=== PATIENT | male | born 1930 | race Caucasian/White ===

== ENCOUNTER 2016-07-29 16:49 | Inpatient (IN) ==
--- NOTE | 2016-07-29 17:08 | Emergency Department Note ---
Disposition Clinical Impression: Comminuted fracture of left patella Qualifiers: Encounter type: initial encounter Fracture type: closed Qualified Code(s): S82.042A - Displaced comminuted fracture of left patella, initial encounter for closed fracture Disposition: Admitted As Inpatient Condition: Fair Referrals: Quinn Nova DO [Primary Care Provider] - Forms: ED Satisfaction Letter Time of Disposition: 17:52 Lower Extremity Injury HPI - General Chief Complaint: ED Extremity Injury, Lower Stated Complaint: knee injury Time Seen by Provider: 07/29/16 17:03 Source: patient Limitations: no limitations Nursing Notes Reviewed: Yes Vital Signs Reviewed: Yes - History of Present Illness HPI Narrative: Nontoxic-appearing 86-year-old male presents to emergency department for evaluation of a left knee injury sustained this morning. The patient states that he went to step over a small fence, when he tripped and fell, landing on his left knee. He now complains of pain and swelling diffusely around the left knee. He denies any other injuries incurred from this incident. He has taken a previously prescribed tramadol at home which he states significantly helped the pain. Pt Subjective Complaint: knee injury Injury location: Left knee Onset (ago): hour(s) (This morning) Mechanism of Injury: fall Context: fall Place: street/outdoors Pain Severity: mild Pain Scale: 3 Improves with: nothing Worsens with: weight bearing, movement, palpation Associated symptoms: Reports: able to partially bear weight Treatments prior to arrival: other (Tramadol) - Related Data Allergies Allergy/AdvReac Type Severity Reaction Status Date / Time No Known Allergies Allergy Verified 07/29/16 16:54 All systems ED: reviewed and negative except as stated. Constitutional: Denies: fever, chills, weakness, weight change Eyes: Denies: eye pain, eye discharge, vision change ENT ED: Denies: ear pain, throat pain, dental pain, hearing loss, epistaxis, congestion, dysphagia Cardiovascular: Denies: chest pain, palpitations, dyspnea on exertion, edema, syncope Respiratory: Denies: cough, dyspnea, wheezes, hemoptysis, stridor Gastrointestinal: Denies: abdominal pain, nausea, vomiting, diarrhea, constipation, hematemesis, melena, hematochezia Genitourinary: Denies: urgency, dysuria, frequency, hematuria Musculoskeletal: Reports: as per HPI, joint swelling (Left knee swelling), arthralgia (Left knee pain). Denies: back pain, neck pain, myalgia Integumentary: Reports: as per HPI, abrasion (Left knee abrasion). Denies: rash , lesions Neurological: Denies: headache, weakness, numbness, paresthesias, confusion, abnormal gait, vertigo Psychiatric: Denies: anxiety, depression, suicidal thoughts, homicidal thoughts , auditory hallucinations, visual hallucinations Endocrine: Denies: fatigue Hematological/Lymphatic: Denies: easy bleeding, easy bruising Allergic/Immunologic: Denies: facial swelling, urticaria Past Medical History - Past Medical History Attestation: Yes The following information was validated with the patient. Source: patient, nursing notes reviewed Medical history: Reports: cancer, hypertension - Social History Smoking Status: Former smoker Alcohol use: Reports: none Drug use: Reports: none Physical Exam - General Limitations: no limitations General appearance: alert, in no apparent distress - Head Head exam: atraumatic, normocephalic, normal inspection - Eye Eye exam: Present: normal appearance, PERRL, EOMI. Absent: nystagmus - ENT ENT exam: mucous membranes moist - Neck Neck exam: Present: normal inspection, full ROM, trachea midline - Chest Chest inspection: Present: normal inspection, symmetric chest wall rise - Respiratory Respiratory exam: Present: normal lung sounds bilaterally. Absent: respiratory distress, wheezes, stridor, accessory muscle use, prolonged expiratory phase - Cardiovascular Cardiovascular exam: Present: regular rate, normal rhythm, normal heart sounds - Abdominal Exam Abdominal exam: Present: soft, Non-Tender, normal bowel sounds. Absent: tenderness, distention, guarding, rebound, rigidity - Expanded Lower Extremity Exam Upper leg exam: Present: normal inspection, full ROM Knee exam: Present: tenderness (Left knee tender to palpation diffusely), swelling (A few swelling noted, left knee), abrasion (We will superficial abrasions noted left knee), ecchymosis (Out ecchymosis noted, left knee), knee extension intact. Absent: full ROM (Range of motion limited by pain, left knee) , laceration, deformity, crepitus, dislocation, erythema, effusion, anterior drawer sign, posterior draw sign, pain with valgus, laxity with valgus, laxity with varus Lower leg exam: Present: normal inspection, full ROM Ankle exam: Present: normal inspection, full ROM Foot/toe exam: Present: normal inspection, full ROM Neurovascular/Tendon exam: Present: normal capillary refill, normal 2-point discrimination. Absent: pulse deficit, motor deficit, sensory deficit, tendon deficit, extremity cold to touch Gait: not tested/not observed - Back Exam Back exam: Present: normal inspection, full ROM. Absent: tenderness - Neurological Exam Neurological exam: Present: alert, oriented X3 - Psychiatric Psychiatric exam: Present: normal affect, normal mood - Skin Skin exam: Present: warm, dry, intact, normal color Course Course Narrative: 1738: I spoke with Dr. Luna, orthopedist home extension agent. I discussed the patient' s case and x-ray results with Dr. Luna. He recommends admission to the hospitalist service as the patient is an unlikely candidate for outpatient care with the use of crutches for nonweightbearing status. He states that he will see the patient in house tomorrow morning. 1748: I spoke with Dr. Darnell, hospitalist, who has accepted the patient for admission to the hospitalist service with orthopedic consult. I have discussed this plan with Dr. Quigley. Dr. Quigley has had a isap-be-elto evaluation with patient and agrees with the above plan. Vital Signs Temperature 0 F L 07/29/16 16:54 Pulse Rate 77 07/29/16 16:54 Respiratory Rate 18 07/29/16 16:54 Blood Pressure 135/82 07/29/16 16:54 O2 Sat by Pulse Oximetry 95 07/29/16 16:54 Temperature 0 F L 07/29/16 16:54 Pulse Rate 77 07/29/16 16:54 Respiratory Rate 18 07/29/16 16:54 Blood Pressure 135/82 07/29/16 16:54 O2 Sat by Pulse Oximetry 95 07/29/16 16:54 Oxygen Delivery Oxygen Delivery Room Air Extremity Injury, Lower - Medical Records Medical records reviewed: Yes I reviewed the patient's medical records. - Radiology Data Radiology results reviewed: Yes I reviewed the patient's radiology results. Knee X-Ray 07/29/16 17:10 IMPRESSION: Comminuted left patellar fracture. D/ / Gurjit Otero MD / Gurjit Otero MD Interpreting Provider: Gurjit Otero MD Attestation Statement - Attestation Attestation: For this encounter, I have reviewed the NON DESTRUCTIVE TESTING SCIENTIST or PA documentation, treatment plan, and medical decision making; and I have had face to face time with this patient. 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 Physical examination is got the effusion with ecchymosis of the left knee. X-ray shows a comminuted patellar fracture. Patient placed in a knee immobilizer consultation with orthopedics patient will be admitted.
[2016-07-29] MEDS ORDERED: Tdap (Boostrix) Vaccine 0.5 ML SYRINGE IM ONE (17:10)
[2016-07-29] MEDS ORDERED: Naloxone 0.4 MG/ML INJ IVP PRN (19:40)
--- NOTE | 2016-07-29 19:47 | Internal Med History&Physical ---
<Kary Perkins - Last Filed: 07/29/16 20:01> Date of Encounter: 07/29/16 Time of Encounter: 19:46 Assessment and Plan (1) Comminuted fracture of left patella Current visit: Yes Status: Acute 1 continue with knee immobilizer 2 consult or so notified per ER physician he will see patient in a.m. 3 patient nothing by mouth after midnight 4 we will obtain EKG 5 obtain lab work Qualifiers: Encounter type: initial encounter Fracture type: closed Qualified Code(s) : S82.042A - Displaced comminuted fracture of left patella, initial encounter for closed fracture (2) Hypertension Current visit: Yes Status: Acute 1 continue with home medications: List maintain systolic was 140 Qualifiers: Hypertension type: essential hypertension Qualified Code(s): I10 - Essential (primary) hypertension (3) DVT prophylaxis Current visit: Yes Status: Acute 1 heparin subcutaneous Internal Medicine - H&P: HPI Chief complaint: Fall L knee pain Admitted From: Emergency Dept Plans for Post Hospital Care: Home History of present illness: Mr. Ortiz is a 86 year old male past medical history of hypertension GERD prostate cancer arthritis versus esophagitis diverticulitis. According to the patient he was spraying off his back patio when he attempted to step over object lost his balance and fell onto his left knee. He began to experience pain and swelling he took a tramadol that he had been previously prescribed which did alleviate some of the pain. He presented to the ER the above complaint on presentation to the ER x-ray of left knee did reveal comminuted left patellar fracture. ER physician did call orthopedics physician retail loss prevention investigator Dr. Luna. He recommends admission to the hospitalist service as the patient is an unlikely candidate for outpatient care with the use of crutches for nonweightbearing status. He states that he will see the patient in house tomorrow morning. Patient has been admitted for further workup evaluation. Presently patient denies any chest pain or shortness of breath. He denies any past cardiac history or cardiac workup however he does admit to cardiac murmur. He denies any history of smoking alcohol or drug use. He denies any history of CVA. Prior to this exam patient was in his usual state of health very active , continues to do his own yard work and walks every day Patient is alert appropriate follow simple commands and sounds are clear heart sounds S1-S2 with systolic murmur noted left leg is wrapped and immobilized. Toes are pink/warm with brisk capillary refill. He is hemodynamically stable at this time IV this case with who agrees with plan. Past Med Surg Social Fam HX - Past Medical History Medical history: cancer, hypertension - Social History Smoking Status: Former smoker Alcohol use: none Drug use: none - Family History Mother Living Status: Cause of : Hypertension heart disease Internal Medicine - H&P: Meds Aspirin Enteric Coated [Aspirin EC] 81 mg PO Q48H 07/29/16 [History] Benazepril HCl [Lotensin] 20 mg PO BID 07/29/16 [History] Diclofenac Sodium [Voltaren] 1 appl TP TID PRN 07/29/16 [History] Esomeprazole Magnesium [Nexium 24Hr] 22.3 mg PO BID 07/29/16 [History] Gabapentin [Neurontin] 600 mg PO TID 07/29/16 [History] Levothyroxine [Synthroid] 50 mcg PO 0630 07/29/16 [History] Tramadol HCl [Ultram] 50 mg PO TID PRN 07/29/16 [History] Allergies No Known Allergies Allergy (Verified 07/29/16 16:54) All Systems PM: A 10-system review of systems was performed and is negative for pertinent findings except as documented above in the HPI. - Constitutional Constitutional: no chills, no fever(s), no night sweats - EENT Eyes: no change in vision, no discharge, no pain, no photophobia Nose, mouth and throat: no dysphagia, no nasal discharge, no neck pain, no sore throat - Cardiovascular Cardiovascular ROS IM: no chest pain, no diaphoresis, no dyspnea, no lightheadedness, no palpitations, no syncope - Respiratory Respiratory: no cough, no dyspnea, no wheezing, no excessive phlegm production - Gastrointestinal Gastrointestinal: no abdominal pain, no diarrhea, no hematemesis, no hematochezia, no melena, no nausea, no vomiting - Musculoskeletal Musculoskeletal ROS IM: stiffness, tingling, no numbness - Integumentary Integumentary IM: no rash, no unusual bruising - Neurological Neurological ROS: no confusion, no convulsions, no focal weakness, no numbness, no tingling, no tremor(s) - Hematologic/Lymphatic Hematologic/Lymphatic: no easy bruising - Constitutional Vitals: Temp Pulse Resp BP Pulse Ox 97.9 F 72 17 172/80 95 07/29/16 19:18 07/29/16 19:18 07/29/16 19:18 07/29/16 19:18 07/29/16 19:18 General appearance: Present: A&O X 3, answers questions appropriately - Head Head exam: Present: atraumatic, normocephalic - Eye Eye exam: Present: PERRL, conjuntiva pink, sclera anicteric Pupils: Present: PERRL - Neck Neck exam general surgery: Present: supple, trachea midline. Absent: lymphadenopathy - Respiratory Respiratory exam: Present: CTAB. Absent: accessory muscle use, rales, rhonchi, wheezes - Cardiovascular Cardiovascular exam: Present: RRR, +S1, +S2. Absent: diastolic murmur, gallop, rubs, systolic murmur - GI/Abdominal GI/Abdominal exam: Present: normal bowel sounds, soft, no peritoneal signs. Absent: distended, tenderness - Extremities Exam Extremities exam: Present: warm, radial pulses palpable and symetrical. Absent : calf tenderness, cyanotic, pedal edema - Neurological Exam Neurological exam: Present: CN II-XII intact, oriented X3, no focal deficits. Absent: pronater drift, facial droop, speech deficit - Skin Skin exam: Present: dry, intact Internal Med - H&P Results - Diagnostic Studies Other Images Additional comments: Knee X-Ray 07/29/16 17:10 IMPRESSION: Comminuted left patellar fracture. D/ / Gurjit Otero MD / Gurjit Otero MD Interpreting Provider: Gurjit Otero MD Knee CT 07/29/16 17:49 IMPRESSION: 1. Markedly comminuted intra-articular left patellar fracture. Fracture distraction measures up to 8 mm. 2. Small lipohemarthrosis. 3. Small nonspecific subcutaneous nodule about the posteromedial aspect of the distal thigh. This abuts the skin surface and may reflect a complicated sebaceous cyst. D/ / 07/29/2016 19:10:23 Eliseo Og MD / lindsay Interpreting Provider: Eliseo Og MD <Katerine Darnell - Last Filed: 07/30/16 17:10> Date of Encounter: 07/30/16 Internal Medicine - H&P: HPI History of present illness: Mr. Ortiz is a 86 year old male All Systems PM: A 10-system review of systems was performed and is negative for pertinent findings except as documented above in the HPI. - Constitutional Vitals: Temp Pulse Resp BP Pulse Ox 98.0 F 101 18 171/92 93 07/30/16 14:05 07/30/16 14:05 07/30/16 14:05 07/30/16 14:05 07/30/16 14:05 Internal Med - H&P Results - Labs CBC & Chem 7: 07/29/16 19:24 07/29/16 19:24 Labs: Short CBC 07/29/16 Range/Units 19:24 WBC 16.0 H (4.3-11.1) K/mcL Hgb 13.5 (12.9-16.9) g/dL Hct 42.7 (37.5-50.1) % Plt Count 328 (140-400) K/mcL Neutrophils # 11.7 H (1.6-8.9) K/mcL BMP 07/29/16 19:24 Sodium 136 Potassium 4.3 Chloride 104 Carbon Dioxide 24 BUN 20 Creatinine 1.12 Glucose 124 H Calcium 8.6 Cardiac Enzymes 07/29/16 Range/Units 19:24 Troponin I 0.01 (0-0.03) ng/mL - Attending Attestation I examined this patient and my medical decision-making was reviewed with the / Advanced Practice Nurse/ I agree with the documented findings, disposition and treatment plan as described
[2016-07-29] MEDS: *HR* Heparin 5,000 UNIT/ML VIAL SQ SCH (20:30)
[2016-07-29 20:31] LABS: Basophils % 0.2 %; Eosinophils # 0.2 K/mcL (0.0-0.6); Eosinophils % 0.9 %; Hematocrit 42.7 % (37.5-50.1); Hemoglobin 13.5 g/dL (12.9-16.9); Immature Granulocytes % 0.5 % (0-4); Lymphocytes # 2.6 K/mcL (0.6-4.6); Lymphocytes % 16.2 %; Mean Corpuscular HGB Conc 31.6 g/dL (31.6-35.5); Mean Corpuscular Hemoglobin 27.8 pg (28.0-33.3); Mean Corpuscular Volume 87.9 fL (83.0-100.0); Mean Platelet Volume 10.1 fL (9.4-12.4); Monocytes # 1.4 K/mcL (0.0-1.3); Monocytes % 8.8 %; Neutrophils # 11.7 K/mcL (1.6-8.9); Platelet Count 328 K/mcL (140-400); Red Blood Count 4.86 M/mcL (4.19-5.50); Red Cell Distribution Width 14.9 % (11.5-14.5); Segmented Neutrophils % 73.4 %
[2016-07-29] MEDS: 0.9 % Sodium Chloride 1,000 ML IVC SCH (20:31)
[2016-07-29 20:35] LABS: INR 1.1; Prothrombin Time 11.5 Seconds (9.4-12.1)
[2016-07-29 20:38] LABS: Activated Partial Thrombo Time 25.9 Seconds (26.0-36.0); BUN/Creatinine Ratio 18 (6-26); Blood Urea Nitrogen 20 mg/dL (8-26); Calcium 8.6 mg/dL (8.6-10.8); Carbon Dioxide 24 mEq/L (19-29); Chloride 104 mEq/L (98-109); Glucose 124 mg/dL (70-99); Osmolality,Calculated 286 (280-300); Potassium 4.3 mEq/L (3.5-4.5); Sodium 136 mEq/L (136-145); eGFR For African Americans > 60 (> 60); eGFR For Non-African Americans > 60 (> 60)
--- NOTE | 2016-07-29 22:19 | Orthopedic Consult Note ---
Date of Encounter: 07/29/16 Time of Encounter: 22:17 Assessment and Plan (1) Comminuted fracture of left patella Current Visit: Yes Status: Acute I did discuss the diagnosis in great detail with the patient. He has a comminuted left patella fracture. I did discuss treatment options and given the amount of displacement, my recommendation is for open reduction and internal fixation to obtain and maintain reduction of the patella in order to restore the extensor mechanism. The risks discussed included but were not limited to stiffness, bleeding, infection, blood clots, damage to neurovascular structures, tendons, ligaments, and bone. Also discussed was the risk of continued symptoms and possible need for further procedures. I did discuss the anesthesia risks including stroke, heart attack, and . In addition I discussed the risks of malunion, nonunion, irritation of the fixation construct and the need to possibly remove it in the future. I also discussed the reasonable, for seeable postoperative course with the patient. I discussed this with the patient simple terms, and he wished to proceed and consent was obtained. Qualifiers: Encounter type: initial encounter Fracture type: closed Qualified Code(s) : S82.042A - Displaced comminuted fracture of left patella, initial encounter for closed fracture History of Present Illness HPI: Mr. Ortiz is a 86 year old male who is relatively healthy and is an unassisted community ambulator who lives independently. He was admitted to the hospitalist after he sustained a non-syncopal fall while trying to spray his back patio. He landed directly onto the left knee. The patient was seen in the emergency department where the diagnosis of a comminuted patella fracture was made. I was asked to evaluate and assist in the management of the patient. On my evaluation the patient complains of a moderate amount of sharp pain to the left anterior knee. He denies any other pain. It is currently well controlled in the posterior long-leg splint. Movement does make pain worse. He denies any numbness, tingling, or any other associated signs or symptoms. No other modifying factors. He denies any headaches, neck pain, chest pain, abdominal pain, bilateral upper extremity pain, and right lower extremity pain. He denies any loss of consciousness. Of note he denies any prior left knee pain. Past Med Surg Social Fam HX - Past Medical History Medical history: cancer, hypertension Psychiatric history: no psych history - Past Surgical History Surgical History: cancer surgery, cholecystectomy - Social History Smoking Status: Former smoker Smokeless Tobacco Status: No Alcohol use: none Drug use: none - Family History Mother Cause of : Cardiac dx Hx Family Cardiac Disorders: Yes Medications and Allergies Aspirin Enteric Coated [Aspirin EC] 81 mg PO Q48H 07/29/16 [History] Benazepril HCl [Lotensin] 20 mg PO BID 07/29/16 [History] Diclofenac Sodium [Voltaren] 1 appl TP TID PRN 07/29/16 [History] Esomeprazole Magnesium [Nexium 24Hr] 22.3 mg PO BID 07/29/16 [History] Gabapentin [Neurontin] 600 mg PO TID 07/29/16 [History] Levothyroxine [Synthroid] 50 mcg PO 0630 07/29/16 [History] Tramadol HCl [Ultram] 50 mg PO TID PRN 07/29/16 [History] Allergies No Known Allergies Allergy (Verified 07/29/16 16:54) All Systems Reviewed: Constitutional and musculoskeletal systems were reviewed and are negative unless otherwise stated in history of present illness.. Physical Exam - Constitutional Vitals: Temp Pulse Resp BP Pulse Ox 97.9 F 72 17 172/80 95 07/29/16 19:18 07/29/16 19:18 07/29/16 19:18 07/29/16 19:18 07/29/16 19:18 Constitutional -Vitals reviewed -The patient is well developed and well nourished. -Mood is pleasant. -The patient is well groomed. Psychiatric -The patient is fully alert and oriented x 3. Respiratory: -Respiratory effort normal Abdomen: -Soft abdomen -Non tender -Non distended: Left upper extremity: -No deformities. The overlying skin is intact. No obvious signs of acute trauma. -No tenderness to palpation throughout. -No significant pain with passive motion of the shoulder, elbow, wrist, and fingers within the limits of the bed. -Able to make an "OK" sign, cross the index and long fingers, and extend the thumb. -Sensation grossly intact to light touch throughout the median, radial, and ulnar distributions. -Radial pulse is present; Fingers have good capillary refill. Right upper extremity: -No deformities. The overlying skin is intact. No obvious signs of acute trauma. -No tenderness to palpation throughout. -No significant pain with passive motion of the shoulder, elbow, wrist, and fingers within the limits of the bed. -Able to make an "OK" sign, cross the index and long fingers, and extend the thumb. -Sensation grossly intact to light touch throughout the median, radial, and ulnar distributions. -Radial pulse is present; Fingers have good capillary refill. Left lower extremity: -Moderate amount of swelling to the anterior knee with a minimal amount of superficial abrasion. -Tenderness to palpation anterior at the knee. -Significant pain with any attempts of knee motion, though no hip pain with logroll and no pain with ankle or toe motion. -No pain with axial loading of the thigh. -Able to dorsiflex and plantarflex the ankle and toes. -Sensation is grossly intact to light touch throughout the sural, saphenous, superficial peroneal, and deep peroneal distributions. -Toes have good capillary refill. Right lower extremity: -No deformities. The overlying skin is intact. No obvious signs of acute trauma. -No tenderness to palpation throughout. -No pain with passive motion of the hip, knee, ankle, and toes within the limits of the bed. -No pain with axial loading of the thigh. -Able to dorsiflex and plantarflex the ankle and toes. -Sensation is grossly intact to light touch throughout the sural, saphenous, superficial peroneal, and deep peroneal distributions. -Toes have good capillary refill. Diagnostic Imaging: I did personally review and interpret x-rays and the CT scan of the left knee which demonstrates a comminuted patella fracture with displacement of the inferior fragments. The patient also has generalized arthritic changes of the knee. Results - Labs Result Diagrams: 07/29/16 19:24 07/29/16 19:24 Labs: Abnormal lab results WBC 16.0 K/mcL (4.3-11.1) H 07/29/16 19:24 MCH 27.8 pg (28.0-33.3) L 07/29/16 19:24 RDW 14.9 % (11.5-14.5) H 07/29/16 19:24 Neutrophils # 11.7 K/mcL (1.6-8.9) H 07/29/16 19:24 Monocytes # 1.4 K/mcL (0.0-1.3) H 07/29/16 19:24 APTT 25.9 Seconds (26.0-36.0) L 07/29/16 19:24 Glucose 124 mg/dL (70-99) H 07/29/16 19:24 H & H 07/29/16 Range/Units 19:24 Hgb 13.5 (12.9-16.9) g/dL Hct 42.7 (37.5-50.1) % All other labs normal. Consult Discharge Plan - Plan Referrals: Quinn Nova DO [Primary Care Provider] -
[2016-07-30] MEDS ORDERED: *HR* OxyCODONE/APAP 10/325 TABLET PO PRN (00:07)
[2016-07-30] MEDS: *HR* HYDROmorphone (PF) 1 MG/ML SYRINGE IVP PRN ×3 (00:12→15:33)
[2016-07-30] MEDS: *HR* OxyCODONE/APAP 5/325 TABLET PO PRN ×3 (02:05→20:22)
[2016-07-30] MEDS: *HR* Heparin 5,000 UNIT/ML VIAL SQ SCH ×2 (06:41→16:30)
[2016-07-30] MEDS: Pantoprazole 40 MG VIAL IVP SCH (06:45)
[2016-07-30] MEDS: Gabapentin 300 MG CAPSULE PO SCH ×3 (09:07→20:22)
[2016-07-30] MEDS: Lisinopril 20 MG TABLET PO SCH ×2 (09:07→09:59)
[2016-07-30] MEDS: 0.9 % Sodium Chloride 1,000 ML IVC SCH (10:24)
--- NOTE | 2016-07-30 12:48 | Internal Med Progress Note ---
Date of Encounter: 07/30/16 Time of Encounter: 12:47 - Assessment and plan (1) Comminuted fracture of left patella Current Visit: Yes Status: Acute Assessment and plan: s/p mechanical fall at home. CT left knee shows comminuted patellar fracture. Orthopedic surgery consult appreciated, plan for ORIF today; continue immobilization with leg/knee brace. pain control with PRN IV Morphine; awaiting EKG; patient does have a grade 3/6 systolic murmur but good functional status and would be low-intermediate perioperative risk. PT/OT evaluation after surgery. Qualifiers: Encounter type: initial encounter Fracture type: closed Qualified Code(s) : S82.042A - Displaced comminuted fracture of left patella, initial encounter for closed fracture (2) Hypertension Current Visit: Yes Status: Chronic Assessment and plan: BP well-controlled; resume home meds; Qualifiers: Hypertension type: essential hypertension Qualified Code(s): I10 - Essential (primary) hypertension (3) DVT prophylaxis Current Visit: Yes Status: Acute Assessment and plan: continue subcutaneous Heparin; - Subjective Interval history: Left knee pain is controlled with pain meds; no chest pain, dyspnea; left knee and leg in splint with ice packs over knee; awaiting surgical fixation today; - Constitutional Vitals: Temp Pulse Resp BP Pulse Ox 79.6 F L 69 18 107/66 93 07/30/16 11:29 07/30/16 11:29 07/30/16 11:29 07/30/16 11:29 07/30/16 11:29 General appearance: Present: A&O X 3, answers questions appropriately - Respiratory Respiratory exam: Present: CTAB. Absent: accessory muscle use, rales, rhonchi, wheezes - Cardiovascular Cardiovascular exam: Present: RRR, +S1, +S2, systolic murmur. Absent: diastolic murmur, gallop, rubs - GI/Abdominal GI/Abdominal exam: Present: normal bowel sounds, soft, no peritoneal signs. Absent: distended, tenderness - Extremities Exam Extremities exam: Present: full ROM (restricted in left knee), warm, radial pulses palpable and symetrical. Absent: calf tenderness, cyanotic, pedal edema Additional comments: left knee and leg immobilizer/splint; Internal Medicine: Result - Labs CBC & Chem 7: 07/29/16 19:24 07/29/16 19:24 Labs: Short CBC 07/29/16 Range/Units 19:24 WBC 16.0 H (4.3-11.1) K/mcL Hgb 13.5 (12.9-16.9) g/dL Hct 42.7 (37.5-50.1) % Plt Count 328 (140-400) K/mcL Neutrophils # 11.7 H (1.6-8.9) K/mcL BMP 07/29/16 19:24 Sodium 136 Potassium 4.3 Chloride 104 Carbon Dioxide 24 BUN 20 Creatinine 1.12 Glucose 124 H Calcium 8.6 Cardiac Enzymes 07/29/16 Range/Units 19:24 Troponin I 0.01 (0-0.03) ng/mL - ABG Interpretation ABG results: PT/INR, D-dimer PT 11.5 Seconds (9.4-12.1) 07/29/16 19:24 - VTE Documentation of Mechanical Device: Venous foot pump, device Consult Discharge Plan - Plan Referrals: Quinn Nova DO [Primary Care Provider] -
[2016-07-30] MEDS ORDERED: Lidocaine/EPI 1:100k 1% 50 ML VIAL INFILT ONE (16:10)
[2016-07-30] MEDS ORDERED: Bupivacaine/EPI 1:200k 0.5%PF 10 ML VIAL ONE (16:10)
[2016-07-30] MEDS ORDERED: *HR* FentaNYL (PF) 100 MCG/2 ML VIAL ONE (16:14)
[2016-07-30] MEDS ORDERED: *HR* Propofol 200 MG/20 ML VIAL IVP ONE (16:14)
[2016-07-30] MEDS ORDERED: Lidocaine -MPF 2% 2 ML VIAL ONE (16:14)
--- NOTE | 2016-07-30 16:15 | Anesthesia Evaluation PreOp ---
Date of Encounter: 07/30/16 Time of Encounter: 16:15 - Past History Planned Operation: ORIF Left Patella Cardiac History: HTN, Hyperlipidemia Pulmonary History: Former smoker [employer] History: Denies Any Significant HX Other Medical History: Thyroid Anesthesia History: No Prior Anesthetic Complications Alcohol Use: none Drug use: none Medications and Allergies Aspirin Enteric Coated [Aspirin EC] 81 mg PO Q48H 07/29/16 [History] Benazepril HCl [Lotensin] 20 mg PO BID 07/29/16 [History] Diclofenac Sodium [Voltaren] 1 appl TP TID PRN 07/29/16 [History] Esomeprazole Magnesium [Nexium 24Hr] 22.3 mg PO BID 07/29/16 [History] Gabapentin [Neurontin] 600 mg PO TID 07/29/16 [History] Levothyroxine [Synthroid] 50 mcg PO 30 07/29/16 [History] Tramadol HCl [Ultram] 50 mg PO TID PRN 07/29/16 [History] Allergies No Known Allergies Allergy (Verified 07/29/16 16:54) - Meds/Allergy Pre-op Review Medications Reviewed: Yes Allergies Reviewed: Yes Beta Blockers on Current Med List: No Anesthesia Results - Labs 07/29/16 19:24 07/29/16 19:24 - Imaging EKG: pending Anesthesia Exam O2 Sat Height 1.73 m Weight 99.79 kg O2 Sat by Pulse Oximetry 93 O2 Sat by Pulse Oximetry 93 O2 Sat by Pulse Oximetry 94 O2 Sat by Pulse Oximetry 94 O2 Sat by Pulse Oximetry 93 O2 Sat by Pulse Oximetry 95 O2 Sat by Pulse Oximetry 95 O2 Sat by Pulse Oximetry 95 Vital Signs Temp Pulse Resp BP Pulse Ox 0 F L 77 18 135/82 95 07/29/16 16:54 07/29/16 16:54 07/29/16 16:54 07/29/16 16:54 07/29/16 16:54 Height: 5'8 Weight: 220 lbs NPO (# of Hours): MN Pain Scale: 0 - HEENT Pupil (Motor): Pupils equal, EOMI Oral Opening: Greater than 3 - [employer] LOC: Oriented [employer] Motor: Normal RUE, Normal LUE, Normal RLE, Normal LLE, Normal Face [employer] Sensory: Normal: RUE, LUE, RLE, LLE, Face - Cardiac Rhythm: Regular Murmur: None JVD: No Carotid Bruit: No - Pulmonary Breath Sounds: bilateral Clear Respiratory Effort: Symmetrical Anesthesia Assess/Plan ASA Score: 2 Modified [place] Scale for Level of Consciousness: Cooperative, oriented, and tranquil Anesthetic Plan: General Monitoring Plan: Standard Monitors Recovery Plan: PACU (Discussed GA, agrees to proceed)
[2016-07-30] MEDS ORDERED: Acetaminophen IV 1,000 MG/100 ML INFUS..BTL ONE (16:29)
[2016-07-30] MEDS ORDERED: Dexamethasone 4 MG/ML VIAL ONE (16:35)
[2016-07-30] MEDS ORDERED: Ondansetron 4 MG/2 ML VIAL ONE (16:35)
[2016-07-30] MEDS ORDERED: ceFAZolin 2,000 MG in D5% in Water (Mini-Bag+) 100 ML IVPB ONE (16:41)
[2016-07-30] MEDS ORDERED: Ondansetron 4 MG/2 ML VIAL IVP ONE (17:06)
[2016-07-30] MEDS ORDERED: *HR* HYDROmorphone (PF) 1 MG/ML SYRINGE IVP PRN (17:06)
[2016-07-30] MEDS ORDERED: *HR* Meperidine 25 MG/ML SYRINGE IVP PRN (17:06)
[2016-07-30] MEDS ORDERED: Naloxone 0.4 MG/ML INJ IVP PRN (17:06)
[2016-07-30] MEDS ORDERED: Albuterol 2.5 MG/3 ML NEBULIZER IH ONE (17:06)
[2016-07-30] MEDS ORDERED: *HR* Labetalol 100 MG/20 ML MDV IVP PRN (17:06)
[2016-07-30] MEDS ORDERED: *HR* HYDROmorphone 2 MG/ML SYRINGE ONE (17:09)
[2016-07-30] MEDS ORDERED: Ketorolac 30 MG/ML VIAL ONE (17:21)
[2016-07-30] MEDS ORDERED: *HR* Heparin 5,000 UNIT/ML VIAL SQ SCH (18:00)
[2016-07-30] MEDS ORDERED: MOM Conc 10 ML UD.LIQ PO PRN (18:16)
[2016-07-30] MEDS ORDERED: Ringers Solution, Lactated 1,000 ML IVC SCH (18:30)
--- NOTE | 2016-07-30 18:55 | Anesthesia Evaluation Post Op ---
Date of Encounter: 07/30/16 Time of Encounter: 19:00 - Vital Signs Vital Signs: Vital Signs/O2 Sat/Glucose, Most Current Temp Pulse Resp BP Pulse Ox 07/30/16 18:36 81 16 144/94 94 07/30/16 18:26 102 14 167/91 95 07/30/16 18:16 99.3 F 107 12 174/95 94 - Lungs Lungs: Clear Ascult./Percussion - Airway Airway: Non-obstructed - Cardiovascular Regular Rate - Mental Status Mental Status: Alert & Oriented, Answers Appropriately - Pain Pain Scale: 2 - Nausea Vomiting Nausea Vomiting: Not Present - Hydration Hydration: NPO - Discharge PostOp Status: Transfer Patient to floor
--- NOTE | 2016-07-30 22:07 | Orthopedic Operative Note ---
Date of procedure: 07/30/16 Procedure: OPERATIVE REPORT DATE OF PROCEDURE: 07/30/2016 SURGEON: Theo Luna MD [employer] DRUM(S): There are no assistants PREOPERATIVE DIAGNOSIS: Left patella fracture POSTOPERATIVE DIAGNOSIS: Left patella fracture PROCEDURE: Open reduction and internal fixation of the left patella ANESTHESIA: General anesthesia PREOPERATIVE ANTIBIOTICS: 2 g of Ancef ESTIMATED BLOOD LOSS: 5 milliliters TOURNIQUET TIME: 49 minutes at 300 mmHg IMPLANTS: #5 FiberWire anterior tension band and cerclage LOCAL INJECTION: 0.5% bupivacaine with 1:200,000 epinephrine; 10 mL were used in total. PREOPERATIVE NOTE AND INDICATIONS: Carlos is an 86-year-old male who sustained a fall onto his left anterior knee. He sustained a comminuted patella fracture with displacement. The recommendation was for the above-described procedure in order to obtain and maintain reduction of the left patella to allow for healing and lutheran of the extensor mechanism. The surgical plan was discussed with the patient. The risks, benefits, alternatives, and potential complications of this procedure were discussed with the patient including injury to veins, arteries, nerves, tendons, ligaments, and bone. Also discussed were the risks of infection, bleeding, pain, blood clots, the possible need for a blood transfusion, the possible need for further procedures, heart attack, stroke, and . Additional risks include stiffness , painful hardware, and the risk for needing hardware removal. All of this was explained in simple terms, and the patient verbalized understanding and wished to proceed. Consent was given to proceed with surgery. PROCEDURE: The patient was seen in the preoperative holding area where the identify and the consent were confirmed. The left knee was marked. Final questions were answered. The patient was brought back to the operating room and placed supine on the operating room table. A huddle was performed with the patient and all vital surgical team members confirming patient identity, the correct procedure, and the correct operative site. General anesthesia was administered. The left lower extremity was prepped and draped in the usual sterile fashion. A surgical time out was performed immediately preceding the incision with all personnel in the operating room to confirm patient identity, the correct operative site and extremity, correct radiographic studies, availability of appropriate surgical equipment, and agreement on the planned procedure. An anterior longitudinal incision was made over the knee. Dissection proceeded through the subcutaneous tissue and full-thickness flaps were developed over the retinaculum and deep layer. Noted was a rupture in the anterior periosteum of the patella which communicated through the fracture and into the joint. The retinaculum was intact on either side of the patella. The joint was copiously irrigated through the fracture. About 1 mm of periosteum was elevated along the fracture margins to assist in reduction. The fracture was complex and stellate. Using a series of Otero reduction tenaculums, the fracture fragments were held together and a pursestring cerclage #5 FiberWire stitch was applied circumferentially around the patella with the assistance of a straight needle with an eyelet. This was tied tight keeping the knot on the superior laterall aspect of the knee. Using a second #5 FiberWire stitch in a [id number] anterior tension band was placed through the quadriceps and patellar tendons which straightened nicely over the fracture fragments. This was tied securely with the knot over the superior medial aspect of the knee. X-rays confirmed good position of the fracture fragments. The tourniquet was deflated and discrete bleeders were electrocauterized. The wound was copiously irrigated and the incision was closed with 0 Vicryl, 3-0 Vicryl, and bethany. A sterile dressing was placed followed by a knee immobilizer locked at 0 degrees of flexion. The instrument, sponge, and needle counts were correct after wound closure. POST OPERATIVE PLAN: Weight Bearing: As tolerated in the knee immobilizer DVT Prophylaxis: Aspirin 325 mg by mouth twice a day Activity: Avoid aggressive activities. Wound Care: Keep the dressing clean, dry, and intact. Pain Control: Percocet Follow Up: 2 weeks
[2016-07-31] MEDS ORDERED: ceFAZolin 2,000 MG in D5% in Water 100 ML IVPB SCH ×2 (04:30)
[2016-07-31 05:20] LABS: BUN/Creatinine Ratio 19 (6-26); Blood Urea Nitrogen 22 mg/dL (8-26); Calcium 7.9 mg/dL (8.6-10.8); Carbon Dioxide 25 mEq/L (19-29); Chloride 103 mEq/L (98-109); Glucose 130 mg/dL (70-99); Osmolality,Calculated 283 (280-300); Potassium 4.6 mEq/L (3.5-4.5); Sodium 134 mEq/L (136-145); eGFR For African Americans > 60 (> 60); eGFR For Non-African Americans > 60 (> 60)
[2016-07-31 05:23] LABS: Basophils % 0.1 %; Hematocrit 37.1 % (37.5-50.1); Immature Granulocytes % 0.7 % (0-4); Lymphocytes # 1.3 K/mcL (0.6-4.6); Lymphocytes % 6.4 %; Mean Corpuscular Hemoglobin 27.6 pg (28.0-33.3); Mean Corpuscular Volume 89.2 fL (83.0-100.0); Mean Platelet Volume 10.1 fL (9.4-12.4); Monocytes # 1.5 K/mcL (0.0-1.3); Monocytes % 7.6 %; Platelet Count 299 K/mcL (140-400); Red Blood Count 4.16 M/mcL (4.19-5.50); Segmented Neutrophils % 85.2 %
[2016-07-31 05:45] LABS: Hemoglobin 11.5 g/dL (12.9-16.9)
[2016-07-31] MEDS: Pantoprazole 40 MG VIAL IVP SCH (06:07)
--- NOTE | 2016-07-31 07:00 | Orthopedics Progress Note ---
Date of Encounter: 07/31/16 Time of Encounter: 06:56 - Assessment and Plan (1) Comminuted fracture of left patella Current Visit: Yes Status: Acute I did discuss the diagnosis in great detail with the patient. He has a comminuted left patella fracture. I did discuss treatment options and given the amount of displacement, my recommendation is for open reduction and internal fixation to obtain and maintain reduction of the patella in order to restore the extensor mechanism. The risks discussed included but were not limited to stiffness, bleeding, infection, blood clots, damage to neurovascular structures, tendons, ligaments, and bone. Also discussed was the risk of continued symptoms and possible need for further procedures. I did discuss the anesthesia risks including stroke, heart attack, and . In addition I discussed the risks of malunion, nonunion, irritation of the fixation construct and the need to possibly remove it in the future. I also discussed the reasonable, for seeable postoperative course with the patient. I discussed this with the patient simple terms, and he wished to proceed and consent was obtained. Qualifiers: Encounter type: initial encounter Fracture type: closed Qualified Code(s) : S82.042A - Displaced comminuted fracture of left patella, initial encounter for closed fracture Subjective Interval history: S: Pain is well-controlled to the left knee. No new complaints. O: Afebrile/VSS The left knee dressing is clean, dry, and intact. The knee immobilizer is well fitting. He can dorsiflex and plantarflex his ankle and toes. The foot is sensate and well-perfused. A: Post open reduction and internal fixation of the left patella, doing well P: Physical therapy and occupational therapy, weightbearing as tolerated on the bilateral lower extremities. Must keep the knee immobilizer on at all times when ambulating. Keep the dressing clean, dry, and intact. Aspirin 325 mg by mouth twice a day for DVT prophylaxis. Orthopedically stable for discharge. Follow-up with me in 2 weeks for repeat x- rays. Objective Vital signs: Vital Signs Temp Pulse Resp BP Pulse Ox 07/31/16 04:13 98 F 77 17 110/69 95 07/31/16 00:06 99.1 F 83 16 103/63 93 07/30/16 21:40 16 95 07/30/16 20:35 98.1 F 92 16 157/82 95 07/30/16 20:09 98.4 F 87 14 145/93 95 07/30/16 19:30 98.1 F 85 14 167/91 95 07/30/16 19:01 98.1 F 82 16 146/91 94 07/30/16 18:46 98.1 F 87 16 146/83 95 07/30/16 18:36 81 16 144/94 94 07/30/16 18:26 102 14 167/91 95 07/30/16 18:16 99.3 F 107 12 174/95 94 07/30/16 14:05 98.0 F 101 18 171/92 93 07/30/16 11:29 97.6 F 69 18 107/66 93 Intake and Output 07/30/16 07/30/16 07/31/16 15:59 23:59 07:59 Intake Total 1000 / 1000 100 / 100 100 / 100 Output Total 200 / 200 260 / 260 Balance 800 / 800 -160 / -160 100 / 100 Intake: IV Fluids 1000 / 1000 100 / 100 100 / 100 0.9 % Sodium Chloride 1, 1000 / 1000 000 ML @ 75 mls/hr IVC . [id number] [facility] Rx#: [id number] Ancef 2,000 MG In 100 / 100 Dextrose 5% (Minibag+) 100 ML 100 ML @ 200 mls/ hr IVPB PREOP ONE Rx#: [id number] Ancef 2,000 MG In 100 / 100 Dextrose 5% 100 ML @ 200 mls/hr IVPB Q8H [facility] Rx#: [id number] Output: Urine 200 / 200 250 / 250 Estimated Blood Loss - Labs CBC & BMP: 07/31/16 04:47 07/31/16 04:47 Labs: Abnormal lab results WBC 20.0 K/mcL (4.3-11.1) H 07/31/16 04:47 RBC 4.16 M/mcL (4.19-5.50) L 07/31/16 04:47 Hgb 11.5 g/dL (12.9-16.9) L D 07/31/16 04:47 Hct 37.1 % (37.5-50.1) L 07/31/16 04:47 MCH 27.6 pg (28.0-33.3) L 07/31/16 04:47 MCHC 31.0 g/dL (31.6-35.5) L 07/31/16 04:47 RDW 15.0 % (11.5-14.5) H 07/31/16 04:47 Neutrophils # 17.0 K/mcL (1.6-8.9) H 07/31/16 04:47 Monocytes # 1.5 K/mcL (0.0-1.3) H 07/31/16 04:47 APTT 25.9 Seconds (26.0-36.0) L 07/29/16 19:24 Sodium 134 mEq/L (136-145) L 07/31/16 04:47 Potassium 4.6 mEq/L (3.5-4.5) H 07/31/16 04:47 Glucose 130 mg/dL (70-99) H 07/31/16 04:47 Calcium 7.9 mg/dL (8.6-10.8) L 07/31/16 04:47 - VTE Documentation of Mechanical Device: Intermittent pneumatic compression device Consult Discharge Plan - Plan Additional Instructions: DISCHARGE INSTRUCTIONS Dr. Luna PROCEDURE PERFORMED -Internal fixation of the left patella Activities -Avoid aggressive activities which may cause injury. Incision care -Keep the knee immobilizer and the dressing clean, dry, and intact. -Do not take dressing off; do not get it wet or dirty. Weight bearing status -Weightbearing as tolerated to the bilateral lower extremities. -Must have knee immobilizer on at all times. Medications -Pain medication per the discharging medical doctor -Enteric coated aspirin 325 mg by mouth twice per day for 28 days from the date of the surgery. Follow-up with Dr. Luna at the office 2 weeks from the surgery date for a post operative evaluation. Call the office at [phone] to schedule appointment. Referrals: Quinn Nova DO [Primary Care Provider] -
[2016-07-31] MEDS: Lisinopril 20 MG TABLET PO SCH (08:54)
[2016-07-31] MEDS: Gabapentin 300 MG CAPSULE PO SCH (08:55)
[2016-07-31] MEDS ORDERED: Aspirin Enteric Coated 325 MG Tablet PO SCH ×2 (09:00→18:19)
[2016-07-31 11:34] VITALS: BP 108/60
[2016-07-31] MEDS: *HR* OxyCODONE/APAP 5/325 TABLET PO PRN (12:31)
--- NOTE | 2016-07-31 12:42 | Discharge Summary ---
Date of Encounter: 07/31/16 Time of Encounter: 12:40 - Discharge Diagnosis (1) Comminuted fracture of left patella Priority: Primary Status: Acute Qualifiers: Encounter type: initial encounter Fracture type: closed Qualified Code(s) : S82.042A - Displaced comminuted fracture of left patella, initial encounter for closed fracture (2) Hypertension Priority: Secondary Status: Chronic Qualifiers: Hypertension type: essential hypertension Qualified Code(s): I10 - Essential (primary) hypertension (3) Leukocytosis Priority: Primary Status: Acute Qualifiers: Leukocytosis type: unspecified Qualified Code(s): D72.829 - Elevated white blood cell count, unspecified - Discharge Medications Home Medications: Benazepril HCl [Lotensin] 20 mg PO BID 07/29/16 [History] Diclofenac Sodium [Voltaren] 1 appl TP TID PRN 07/29/16 [History] Esomeprazole Magnesium [Nexium 24Hr] 22.3 mg PO BID 07/29/16 [History] Gabapentin [Neurontin] 600 mg PO TID 07/29/16 [History] Levothyroxine [Synthroid] [place] [address]/29/16 [History] Tramadol HCl [Ultram] 50 mg PO TID PRN 07/29/16 [History] Aspirin Enteric Coated [Aspirin EC] 81 mg PO DAILY #0 07/31/16 [Rx] Allergies/Adverse Reactions: Allergies No Known Allergies Allergy (Verified 07/29/16 16:54) - Notes to Outpatient Provider Please repeat CBC in 1-2 weeks to monitor improvement in leukocytosis. Date of admission: 07/31/16 12:07 Primary care physician: Quinn Nova, Discharging clinician: Fanny Jessica Anticipated date of discharge: 07/31/16 - Patient Status Disposition: Home Health Service Condition: Fair Functional capacity at discharge: uses cane/walker Overall status at discharge: patient is progressing back to baseline - Discharge Instructions Follow Up With: Quinn Nova DO [Primary Care Provider] - Theo Luna MD [Partnered Physician] - 08/17/16 9:10 am Additional Instructions: DISCHARGE INSTRUCTIONS Dr. Luna PROCEDURE PERFORMED -Internal fixation of the left patella Activities -Avoid aggressive activities which may cause injury. Incision care -Keep the knee immobilizer and the dressing clean, dry, and intact. -Do not take dressing off; do not get it wet or dirty. Weight bearing status -Weightbearing as tolerated to the bilateral lower extremities. -Must have knee immobilizer on at all times. Medications -Pain medication per the discharging medical doctor -Enteric coated aspirin 325 mg by mouth twice per day for 28 days from the date of the surgery. - Diet and Activity Activity: as per physical therapy, other (use knee immobilizer at all times) Diet: low fat, low cholesterol, low salt diet Hospital course: Mr. Ortiz is a 86 year old male who was admitted with left knee pain after sustaining a mechanical fall at home. Left knee x-ray showed comminuted left patellar fracture. Orthopedic surgery was consulted and patient subsequently underwent open reduction and internal fixation of patellar fracture. His pain is currently well controlled. Physical therapy evaluation was completed, recommend home health services. Patient is provided with a left knee brace and is advised to keep the brace on at all times during ambulation. He is medically stable for discharge with outpatient orthopedics follow-up. Patient was also noted to have leukocytosis with slight left shift at admission , which has gotten slightly worse after surgery, this may be stress related. However, patient declined to stay in the hospital for following his WBC count and therefore is recommended to follow up with his primary care provider for repeat labs in one week to check for improvement and he verbalized understanding. He does not appear septic, no source of infection was found. - Time Spent with Patient Total time spent providing and/or coordinating discharge services: Greater than 30 minutes (45 min) - Constitutional Vitals: Temp Pulse Resp BP Pulse Ox 98.5 F 82 18 108/60 94 07/31/16 11:28 07/31/16 11:28 07/31/16 11:28 07/31/16 11:28 07/31/16 11:28 General appearance: Present: A&O X 3, answers questions appropriately - Respiratory Respiratory exam: Present: CTAB. Absent: accessory muscle use, rales, rhonchi, wheezes - Cardiovascular Cardiovascular exam: Present: RRR, +S1, +S2. Absent: diastolic murmur, gallop, rubs, systolic murmur - VTE Documentation of Mechanical Device: Intermittent pneumatic compression device
--- NOTE | 2016-07-31 13:00 | Physician Discharge Referral ---
Home Health/Hosp Referral Info Transfer to: Home Health Attending Provider: Fanny Jessica Provider in Charge Post Discharge: PCP - Diagnosis (1) Comminuted fracture of left patella Priority: Primary Status: Acute (2) Hypertension Priority: Secondary Status: Chronic (3) Leukocytosis Priority: Primary Status: Acute - Respiratory Orders Smoking Cessation: Smoking cessation has been advised. For more information, call the [place] Tobacco Quit Line at 2-683-LIUO-NOW. - Diet/Nutrition Diet/Nutrition Orders: Cardiac - Activity Activity Orders: Ambulate, Walker - Services Needed Following services are medically necessary services: Nursing, Physical Therapy, Occupational Therapy - Transfer Medications Home Medications: Benazepril HCl [Lotensin] 20 mg PO BID 07/29/16 [History] Diclofenac Sodium [Voltaren] 1 appl TP TID PRN 07/29/16 [History] Esomeprazole Magnesium [Nexium 24Hr] 22.3 mg PO BID 07/29/16 [History] Gabapentin [Neurontin] 600 mg PO TID 07/29/16 [History] Levothyroxine [Synthroid] 50 mcg PO 0630 07/29/16 [History] Tramadol HCl [Ultram] 50 mg PO TID PRN 07/29/16 [History] Aspirin Enteric Coated [Aspirin EC] 81 mg PO DAILY #0 07/31/16 [Rx] Allergies/Adverse Reactions: Allergies No Known Allergies Allergy (Verified 07/29/16 16:54) Certification: Further, I certify that my clinical findings support that this patient is homebound (i.e. absences from home require considerable and taxing effort and are for medical reasons or mosque services or infrequently or short duration when for other reasons) because: Homebound Reason: Patient requires assistance of a person or device to safely leave home, Leaving home requires considerable and taxing effort due to condition Attestation: My signature below is to certify that this patient is under my care and that I, or nurse practitioner, or a physician's home based assistant working with me, has a face-to -face encounter with this patient.
--- NOTE | 2016-07-31 18:46 | Electrocardiograph Report ---
[place] [id number] Test Date: 2016-07-30 Pat Name: Carlos Ortiz Department: 114 Room: [facility] Gender: M Box Brander: SAM : [id number] Requested By: Kary Perkins Order Number: [id number] Reading MD: Edouard Nguyen MD Measurements Intervals [place] Rate: 90 P: -60 CT: 228 QRS: 16 QRSD: 94 T: 15 QT: 356 QTc: 404 Interpretive Statements SINUS RHYTHM WITH FIRST DEGREE AV BLOCK BASELINE ARTIFACT COMPLICATES ACCURATE INTERPRETATION Electronically Signed On 07-31-2016 18:45:04 EDT by Edouard Nguyen MD
== END 2016-07-31 15:50 | disposition home health service (06) | DRG 517 ==
LOC: EMEROO 16:49 → 3NENU 16:49 → SUATTDRO 18:16 → 3NENU 18:34
PROVIDERS: ADMIT Internal Medicine Endocrinology, Diabetes & Metabolism; ATTEND Internal Medicine

== ENCOUNTER 2017-07-05 10:18 | Inpatient (IN) ==
--- NOTE | 2017-07-04 22:27 | Discharge Summary ---
<J Carlos Bloom - Last Filed: 07/05/17 11:58> Orders not resulted at time of discharge: Pending orders 07/05/17 00:01 XR hip complete RT [XR] Routine H/H [Hemoglobin and Hematocrit] [HEME] Routine 07/05/17 11:16 US anesthesia pain block [US] Routine Date of Encounter: 07/05/17 - Discharge Diagnosis (1) Obesity (BMI 30.0-34.9) Priority: Secondary Status: Chronic (2) Hypertension Priority: Secondary Status: Chronic Qualifiers: Hypertension type: essential hypertension Qualified Code(s): I10 - Essential (primary) hypertension (3) DVT prophylaxis Priority: Secondary Status: Chronic (4) Leukocytosis Priority: Secondary Status: Acute Qualifiers: Leukocytosis type: unspecified Qualified Code(s): D72.829 - Elevated white blood cell count, unspecified (5) Arthritis of right hip Priority: Primary Status: Chronic (6) Status post total hip replacement, right Priority: Primary Status: Acute (7) Neuropathy Priority: Secondary Status: Chronic (8) GERD (gastroesophageal reflux disease) Priority: Secondary Status: Chronic Qualifiers: Esophagitis presence: esophagitis presence not specified Qualified Code(s) : K21.9 - Gastro-esophageal reflux disease without esophagitis (9) Mitral valve regurgitation Priority: Secondary Status: Chronic Qualifiers: Cardiac valve disease etiology: etiology unspecified Qualified Code(s): I34.0 - Nonrheumatic mitral (valve) insufficiency - Hospital Course Hospital course: Mr. Ortiz is a 86 year old male - Time Spent with Patient Total time spent providing and/or coordinating discharge services: - Discharge Medications Home Medications: Benazepril HCl [Lotensin] 20 mg PO BID 07/29/16 [History] Esomeprazole Magnesium [Nexium 24Hr] 22.3 mg PO BID 07/29/16 [History] Gabapentin [Neurontin] 600 mg PO TID 07/29/16 [History] Levothyroxine [Synthroid] [place] [address]/29/16 [History] Aspirin Enteric Coated [Aspirin EC] 325 mg PO BID #20 tablet. 07/04/17 [Rx] OxyCODONE Immed Rel [Roxicodone 5 MG] 5 mg PO Q6HR PRN 7 Days #28 tablet [Rx] Aspirin 81 mg PO Q48H 07/05/17 [History] Cyanocobalamin (Vitamin B-12) [Vitamin B12] 1,000 mcg PO DAILY 07/05/17 [History ] Bat535/Ferrous Fumarate/FA [Gs Vitamins Tablet] 1 tab PO DAILY [History] Allergies/Adverse Reactions: 3 Allergy/AdvReac Type Severity Reaction Status Date / Time pregabalin [From Lyrica] AdvReac See Verified 07/05/17 10:53 Comments Primary care physician: Quinn Nova, - Patient Status Disposition: Transfer Inpatient Rehab Fac Condition: Good - Discharge Instructions Follow Up With: Quinn Nova DO [Primary Care Provider] - Additional Instructions: Discharge Instructions: Total Hip Replacement Please call [facility] ([phone]), your Primary Care Physician, or report to the Emergency Room if you have any of the following symptoms: Nausea, vomiting, fever greater that 101.5, swelling, chest pain, shortness of breath, increased pain/redness/drainage/odor for your incision site, numbness/ tingling, or any other concerning symptoms. ACTIVITY:Weight-bearing as tolerated for 8 weeks with hip dislocation precautions that physical therapy taught you. You may progress as tolerated under the guidance of your physical therapist. You do not need to sleep with a pillow between your legs. You can also seep on the operative side or on your stomach. MEDICATIONS: Upon discharge resume your home medications. Take all the medications as prescribed. Take a stool softener if taking narcotic pain medications. Stool softeners are only effective if you drink enough fluids. Drink 6-8 glass of water or fluids a day, unless this is not allowed for another health problem. Despite using stool softeners, if you haven't had a bowel movement in 3 days, please switch to a gentle laxative. Gentle laxatives are sold over the counter. You should have a bowel movement within 24 hours, if not call the office. You will be discharged from the hospital with a prescription for pain medication. You are encouraged to decrease the use of narcotic pain medication as tolerated. Should you require a refill, please call the office. [facility] prescribes narcotic pain medication for only 4-6 weeks after surgery. If you require pain medication beyond this time period, you may be referred to your Primary Care Physician or to the Pain Clinic for further evaluation. Plan ahead for refills on pain medication as many narcotics either need to be picked up at the office or mailed. It is best to call 48-72 hours in advance of needing a prescription refill so you don't run out of medication. To help control the post-operative pain, you may take NSAIDs (Aleve,Advil, Motrin, ibuprofen, naprosyn) or Tylenol as prescribed on the bottle in addition to the pain medication. ANTICOAGULATION (blood thinners): Continue your Aspirin, Lovenox or Coumadin as prescribed to help prevent a blood clot in the leg or in the lungs. As long as your incision remains dry and you tolerate the NSAIDs (Aleve, Advil, Motrin, Ibuprofen, Naprosyn), it is OK to use the NSAIDS while you are taking your anticoagulation medication. Should your incision start to drain, stop the NSAID and contact our office. Common symptoms of blood clot in the legs include: localized pain, swelling, calf tenderness, redness or discoloration of the skin. Blood clot in the lung symptoms include: shortness of breath, rapid pulse, sweating, and chest pain that worsens with deep breathing, coughing up blood, lightheadedness, feelings of anxiety. If you experience any of these symptoms notify your physician immediately, go to the emergency room, or if having trouble breathing, call 911. WOUND CARE: Leave the dressing on for 7 to 10days. You may change the dressing if it is saturated greater than 50%. Do not get the dressing wet at anytime. Wash your hands with antibacterial soap, rinse and dry prior to any wound care. If you have bethany the visiting nurse or rehab facility can remove the stapes 10-14 days after surgery and place steri-strips across the wound. Leave the steri-strips in place until they fall off on their own. You may let water from the shower run on top of the steri-strips. If you do not have a visiting nurse or rehab facility, you will need to return to the office at 10-14 days for the bethany to be removed. If you have itching or redness around the dressing call the office. FOLLOW-UP: Please follow up with your surgeon in the orthopedic clinic in 6 weeks from the day of surgery. If you have bethany that need to be removed, you will need to come back to the office in 10-14 days from the day of surgery. <Lisseth Rasmussen - Last Filed: 07/12/17 09:18> Date of Encounter: 07/08/17 Time of Encounter: 09:18 - Discharge Diagnosis (1) Arthritis of right hip Priority: Primary Status: Chronic (2) Status post total hip replacement, right Priority: Primary Status: Acute (3) Neuropathy Priority: Secondary Status: Chronic (4) GERD (gastroesophageal reflux disease) Priority: Secondary Status: Chronic Qualifiers: Esophagitis presence: esophagitis presence not specified Qualified Code(s) : K21.9 - Gastro-esophageal reflux disease without esophagitis (5) Obesity Priority: Secondary Status: Chronic Qualifiers: Obesity type: unspecified obesity type Obesity classification: unspecified obesity classification Serious obesity comorbidity presence: unspecified whether serious comorbidity present Qualified Code(s): E66.9 - Obesity, unspecified (6) Mitral valve regurgitation Priority: Secondary Status: Chronic Qualifiers: Cardiac valve disease etiology: etiology unspecified Qualified Code(s): I34.0 - Nonrheumatic mitral (valve) insufficiency (7) Hypertension Priority: Secondary Status: Chronic Qualifiers: Hypertension type: essential hypertension Qualified Code(s): I10 - Essential (primary) hypertension - Hospital Course Hospital course: Mr. Ortiz is a 86 year old male - Time Spent with Patient Total time spent providing and/or coordinating discharge services: Primary care physician: Quinn Nova, - Patient Status Functional capacity at discharge: uses cane/walker Overall status at discharge: patient is back to baseline
[2017-07-05] MEDS ORDERED: CeFAZolin Syr 2,000MG/20 ML 2,000 MG/20 ML SYRINGE IVPB ONE (10:50)
[2017-07-05] MEDS ORDERED: Lidocaine -MPF 2% 2 ML VIAL ONE (10:54)
[2017-07-05] MEDS ORDERED: *HR* FentaNYL (PF) 100 MCG/2 ML VIAL ONE (10:54)
[2017-07-05] MEDS ORDERED: Dexamethasone 4 MG/ML VIAL ONE (10:59)
[2017-07-05] MEDS ORDERED: Ondansetron 4 MG/2 ML VIAL ONE (10:59)
[2017-07-05] MEDS ORDERED: Ringers Solution, Lactated 1,000 ML IVC SCH ×2 (11:00→15:04)
[2017-07-05] MEDS ORDERED: Propofol 500 MG/50 ML INFUS..BTL ONE (11:02)
[2017-07-05] MEDS ORDERED: Famotidine 20 MG/2 ML VIAL IVP ONE (11:16)
--- NOTE | 2017-07-05 11:21 | Anesthesia Evaluation PreOp ---
Date of Encounter: 07/05/17 Time of Encounter: 11:20 - Past History Planned Operation: Rt THR Cardiac History: HTN, Hyperlipidemia Pulmonary History: Denies Any Significant HX PLUMBING CONTRACTOR History: Denies Any Significant HX Other Medical History: GERD Anesthesia History: No Prior Anesthetic Complications Alcohol Use: none Drug use: none Medications and Allergies Benazepril HCl [Lotensin] 20 mg PO BID 07/29/16 [History] Esomeprazole Magnesium [Nexium 24Hr] 22.3 mg PO BID 07/29/16 [History] Gabapentin [Neurontin] 600 mg PO TID 07/29/16 [History] Levothyroxine [Synthroid] 50 mcg PO 0630 07/29/16 [History] Aspirin Enteric Coated [Aspirin EC] 325 mg PO BID #20 tablet. 07/04/17 [Rx] OxyCODONE Immed Rel [Roxicodone 5 MG] 5 mg PO Q6HR PRN 7 Days #28 tablet [Rx] Aspirin 81 mg PO Q48H 07/05/17 [History] Cyanocobalamin (Vitamin B-12) [Vitamin B12] 1,000 mcg PO DAILY 07/05/17 [History ] Xkk077/Ferrous Fumarate/FA [Gs Vitamins Tablet] 1 tab PO DAILY [History] 3 Allergy/AdvReac Type Severity Reaction Status Date / Time pregabalin [From Lyrica] AdvReac See Verified 07/05/17 10:53 Comments - Meds/Allergy Pre-op Review Medications Reviewed: Yes Allergies Reviewed: Yes Beta Blockers on Current Med List: No Anesthesia Results - Labs Laboratory Tests 07/29/16 07/29/16 06/25/17 19:24 19:24 15:32 Hgb 13.5 Hct 42.7 Plt Count 328 PT INR APTT Sodium 136 136 Potassium 4.3 4.7 BUN 20 15 Creatinine 1.12 1.16 06/25/17 06/25/17 15:33 15:33 Hgb 13.4 Hct 42.3 Plt Count 399 PT 11.4 INR 1.1 APTT 30.7 Sodium Potassium BUN Creatinine - Imaging EKG: report reviewed (SR First Degree Block) Additional studies: ECHO 2016 EF 60% Anesthesia Exam O2 Sat Height 1.73 m Height 1.73 m Weight 103.873 kg Weight 103.873 kg O2 Sat by Pulse Oximetry 95 Vital Signs Temp Pulse Resp BP Pulse Ox 98.3 F 100 18 181/103 95 07/05/17 10:37 07/05/17 10:37 07/05/17 10:37 07/05/17 10:37 07/05/17 10:37 Height: 5'8 Weight: 229 lbs NPO (# of Hours): MN Pain Scale: 0 - HEENT Pupil (Motor): Pupils equal, EOMI Mallampati: II Teeth: Normal Oral Opening: Greater than 3 - PLUMBING CONTRACTOR LOC: Oriented PLUMBING CONTRACTOR Motor: Normal RUE, Normal LUE, Normal RLE, Normal LLE, Normal Face PLUMBING CONTRACTOR Sensory: Normal: RUE, LUE, RLE, LLE, Face - Cardiac Rhythm: Regular Murmur: None JVD: No Carotid Bruit: No - Pulmonary Breath Sounds: bilateral Clear Respiratory Effort: Symmetrical Anesthesia Assess/Plan ASA Score: 2 Modified Vass Scale for Level of Consciousness: Cooperative, oriented, and tranquil Anesthetic Plan: General, Regional, MAC Monitoring Plan: Standard Monitors Recovery Plan: PACU (Discussed SAB with Fascia [place]li[place], versus GA, agrees to proceed)
--- NOTE | 2017-07-05 11:58 | History & Physical Report ---
Date of Encounter: 07/05/17 Time of Encounter: 11:57 24 Hour HP Update - Instructions Instructions: If the History and Physical is less than 30 days old and was completed prior to A.M. admission and or procedure and has NOT been updated on calendar day of procedure please complete this update prior to performing procedure. - Update Patient reports changes in Medical Condition: No Changes in examination, assessment, or condition: No Changes in Medication: No Preop tests/diagnostics Reviewed: Yes Surgery Remains Indicated: Yes Consent for Planned Operative Procedure(s) Verified: Yes - Pre-Operative Checklist Preoperative Checklist Indicated: No Is VTE Prophylaxis Indicated?: Yes
[2017-07-05] MEDS ORDERED: Morphine Sulfate/PF 5mg/10mL Vial ONE (12:04)
[2017-07-05] MEDS ORDERED: ROPIVACAINE HCL/PF 0.5% 30 ML VIAL ONE (12:04)
[2017-07-05] MEDS ORDERED: Ethanol\\Acetic Acid\\Na Ace\\Ben 1,000 ML IRRIG.SOLN IR ONE (12:20)
[2017-07-05] MEDS ORDERED: EPHEDrine 50 MG/ML VIAL ONE (13:24)
[2017-07-05] MEDS ORDERED: *HR* PHENYLEPHRINE 1,000 MCG/10 ML SYRINGE IVP ONE (13:27)
[2017-07-05] MEDS ORDERED: *HR* Promethazine 25 MG/ML VIAL IVP PRN (13:33)
--- NOTE | 2017-07-05 13:50 | Orthopedic Operative Note ---
Date of procedure: 07/05/17 Pre-op diagnosis: Right Hip arthritis Post-op diagnosis: same Procedure: Procedure: Right Total Hip Replacment robotic-assisted Estimated blood loss: 200 cc Hardware: Metal and polyethylene replacement. Alvaro DM Cup: 62 cup Femoral size 9 stem Head: 8 head with Nelly Procedural Notes: Grade 4 arthritic changes femoral head acetabular socket, procedure performed with robotic assistance. 4 mm short as measured by preoperative CT Operative procedure: The patient was brought to the operating room and placed on the operating room table. After general anesthesia was administered the patient was placed in the lateral decubitus position with the operative leg up. All pressure points were padded appropriately and the head was stabilized in the neutral position. The operative extremity was prepped and draped in the sterile surgical fashion patient received IV antibiotic prior to skin incision. 3 Steinmann pins were placed in the iliac crest 3 cm proximal to the anterior superior iliac spine this was for the robotic-assisted sensor. This was done through a small 2 cm incision. A standard posterior approach is made to the operative hip, the incision was made through the skin and subcutaneous tissue hemostasis was obtained with Bovie cautery. Using careful sharp dissection the fascia was identified and incised exposing the external rotators. The femoral checkpoint was placed leg length was measured at this time utilizing robotic assistance. The external rotators were released off the greater trochanter and tagged with # 2 FiberWire suture. The capsule was T'd open and the hip was brought into internal rotation. Patient noted to have grade 4 arthritic changes femoral head. The femoral neck cut was made at the appropriate level roughly 1 mm proximal to the lesser trochanter aced on preoperative templating. An anterior capsulotomy was performed for the anterior retractor. Soft tissues removed from the acetabulum. Patient noted to have grade 4 arthritic changes acetabulum. The acetabulum checkpoint was placed confirmed. The acetabulum was then mapped with robotic assistance. Based on the preoperative plan the acetabulum was reamed in one step with a 61 reamer. The 62 acetabulum was impacted with robotic assistance and 41 degrees of abduction and 19 degrees of anteversion. The hip was brought back in to internal rotation and prepared with the jukebox route driver followed by the canal finder followed by the reaming process to a size 9/ 10 broaching process in 20 degrees anteversion. It was broached up to the appropriate size 9. Trial reduction revealed leg lengths close to normal. The femoral implant was impacted in place in 20 degrees of anteversion. Trial reduction found the hip to be stable with 8 head and Nelly. The trials were removed and the real implants were impacted in place. The hip was reduced, patient had robotic confirmed leg length of 8 mm longer than the contralateral side. The hip had excellent stability with forward flexion to 90 degrees adduction of 30 degrees and internal rotation of 60 degrees. The hip had no shuck. The hips after 2 minutes with a antibacterial solution. It was irrigated out with 2 L of pulse irrigation. The checkpoints were removed, Steinmann pins were removed. The hip was closed by the PA. The deep tissue was irrigated and closed deep with #1 PDS suture superficially with 0 PDS suture and skin was closed with Dermabond and zip tie. The patient was placed in a sterile dressing and abduction pillow. The patient was extubated and transferred to the recovery room in stable condition. Anesthesia: spinal Surgeon: J Carlos Bloom Was there an assistant plant control operator present: Yes Farm Management Professor: Lisseth Rasmussen Estimated blood loss (cc): 200 Condition: stable Disposition: PACU
--- NOTE | 2017-07-05 14:30 | Physician Discharge Referral ---
Home Health/Hosp Referral Info Transfer to: Home Health Attending Provider: Provider in Charge Post Discharge: PCP - Diagnosis (1) Arthritis of right hip Priority: Primary Status: Chronic (2) Status post total hip replacement, right Priority: Primary Status: Acute (3) Neuropathy Status: Chronic (4) GERD (gastroesophageal reflux disease) Status: Chronic (5) Obesity Status: Chronic (6) Mitral valve regurgitation Status: Chronic (7) Hypertension Status: Chronic - Respiratory Orders None Smoking Cessation: Smoking cessation has been advised. For more information, call the [place] Tobacco Quit Line at 2-378-YHWG-NOW. - Diet/Nutrition Diet/Nutrition Orders: Regular - Activity Activity Orders: Up ad corinna, Ambulate, Walker - Services Needed Following services are medically necessary services: Nursing, Home Health Aide, Physical Therapy, Occupational Therapy Home Care Orders: HIP Continuity Opsite dressing, leave intact until first post-operative visit. If dressing becomes >50% saturated, contact office, remove dressing and place appropriate dressing in its place. Do not allow for dressing to get wet. Zipline in place, plan to remove at post-operative day #14-16. Total Joint Precautions x 6 weeks Apply cold therapy wrap 3-6x/day for 20 minutes at a time. Encourage ambulation throughout the day Use Incentive spirometer 10x/hour. Elevate affected extremity above heart as tolerated. Brace: Wear hip abductor brace at night x 6 weeks.~ - Transfer Medications Home Medications: Benazepril HCl [Lotensin] 20 mg PO BID 07/29/16 [History] Esomeprazole Magnesium [Nexium 24Hr] 22.3 mg PO BID 07/29/16 [History] Gabapentin [Neurontin] 600 mg PO TID 07/29/16 [History] Levothyroxine [Synthroid] 50 mcg PO 0630 07/29/16 [History] Aspirin Enteric Coated [Aspirin EC] 325 mg PO BID #20 tablet. 07/04/17 [Rx] OxyCODONE Immed Rel [Roxicodone 5 MG] 5 mg PO Q6HR PRN 7 Days #28 tablet [Rx] Aspirin 81 mg PO Q48H 07/05/17 [History] Cyanocobalamin (Vitamin B-12) [Vitamin B12] 1,000 mcg PO DAILY 07/05/17 [History ] Rga494/Ferrous Fumarate/FA [Gs Vitamins Tablet] 1 tab PO DAILY [History] Allergies/Adverse Reactions: 3 Allergy/AdvReac Type Severity Reaction Status Date / Time pregabalin [From Lyrica] AdvReac See Verified 07/05/17 10:53 Comments Certification: Further, I certify that my clinical findings support that this patient is homebound (i.e. absences from home require considerable and taxing effort and are for medical reasons or rastafarian services or infrequently or short duration when for other reasons) because: Homebound Reason: Post-surgery restriction and or conditions limit ability to leave home Attestation: My signature below is to certify that this patient is under my care and that I, or nurse practitioner, or a physician's public services assistant working with me, has a face-to -face encounter with this patient.
[2017-07-05] MEDS ORDERED: Naloxone 0.4 MG/ML INJ IVP PRN ×2 (15:03→15:04)
[2017-07-05] MEDS ORDERED: Ondansetron 4 MG/2 ML VIAL IVP PRN (15:03)
[2017-07-05] MEDS ORDERED: *HR* OxyCODONE/APAP 5/325 TABLET PO PRN (15:03)
--- NOTE | 2017-07-05 15:03 | Anesthesia Evaluation Post Op ---
Date of Encounter: 07/05/17 Time of Encounter: 15:00 - Vital Signs Vital Signs: Vital Signs/O2 Sat/Glucose, Most Current Temp Pulse Resp BP Pulse Ox 07/05/17 14:59 77 18 128/88 96 07/05/17 14:49 72 16 124/69 95 07/05/17 14:39 97.7 F 68 16 108/62 96 07/05/17 14:29 73 16 106/59 95 07/05/17 14:19 76 16 98/62 98 07/05/17 14:09 98.2 F 73 12 101/75 93 07/05/17 12:08 96 174/76 95 - Lungs Lungs: Clear Ascult./Percussion - Airway Airway: Non-obstructed - Cardiovascular Regular Rate - Mental Status Mental Status: Alert & Oriented, Answers Appropriately - Pain Pain Scale: 0 - Nausea Vomiting Nausea Vomiting: Not Present - Hydration Hydration: Ice chips - Discharge PostOp Status: Transfer Patient to floor
[2017-07-05 15:04] LABS: Hematocrit 35.8 % (37.5-50.1); Hemoglobin 11.4 g/dL (12.9-16.9)
[2017-07-05] MEDS ORDERED: MOM Conc 10 ML UD.LIQ PO PRN (15:04)
[2017-07-05] MEDS ORDERED: traMADol 50 MG TABLET PO PRN (15:04)
[2017-07-05] MEDS ORDERED: Temazepam 15 MG CAPSULE PO PRN (15:04)
[2017-07-05] MEDS ORDERED: Sennosides 8.6 MG TABLET PO PRN (15:04)
[2017-07-05] MEDS ORDERED: Aspirin 81 MG TAB.CHEW PO SCH (15:04)
[2017-07-05] MEDS ORDERED: *HR* OxyCODONE Immed Rel 5 MG TABLET PO PRN (15:04)
[2017-07-05] MEDS: Ascorbic Acid 500 MG TABLET PO SCH (16:00)
[2017-07-05] MEDS: Gabapentin 300 MG CAPSULE PO SCH ×2 (16:00→20:25)
[2017-07-05] MEDS: Ondansetron 4 MG/2 ML VIAL IVP PRN (17:09)
[2017-07-05] MEDS ORDERED: *HR* Enoxaparin 30 MG/0.3 ML SYRINGE SQ SCH (18:00)
[2017-07-05] MEDS: *HR* Enoxaparin 30 MG/0.3 ML SYRINGE SQ SCH (18:06)
[2017-07-05] MEDS: Lisinopril 20 MG TABLET PO SCH (20:25)
[2017-07-05] MEDS: CeFAZolin Pre 2,000 MG/100 ML 2,000 MG/100 ML BAG IVPB SCH (21:28)
[2017-07-06] MEDS: Ondansetron 4 MG/2 ML VIAL IVP PRN ×2 (00:29→08:12)
[2017-07-06] MEDS: *HR* OxyCODONE/APAP 5/325 TABLET PO PRN ×2 (00:40→18:37)
[2017-07-06 02:33] LABS: Hematocrit 36.4 % (37.5-50.1); Hemoglobin 11.7 g/dL (12.9-16.9)
[2017-07-06 02:54] LABS: BUN/Creatinine Ratio 15 (6-26); Blood Urea Nitrogen 16 mg/dL (8-23); Calcium 8.6 mg/dL (8.6-10.3); Carbon Dioxide 23 mEq/L (23-29); Chloride 105 mEq/L (98-107); Glucose 176 mg/dL (70-105); Osmolality,Calculated 293 (280-300); Potassium 4.5 mEq/L (3.5-5.1); Sodium 139 mEq/L (136-145); eGFR For African Americans > 60 (> 60); eGFR For Non-African Americans > 60 (> 60)
[2017-07-06] MEDS: CeFAZolin Pre 2,000 MG/100 ML 2,000 MG/100 ML BAG IVPB SCH (05:00)
[2017-07-06] MEDS: *HR* Enoxaparin 30 MG/0.3 ML SYRINGE SQ SCH ×2 (05:01→17:47)
--- NOTE | 2017-07-06 06:15 | Orthopedics Progress Note ---
Date of Encounter: 07/06/17 Time of Encounter: 06:15 - Assessment and Plan (1) Obesity (BMI 30.0-34.9) Current Visit: Yes Status: Chronic (2) Hypertension Current Visit: No Status: Chronic Qualifiers: Hypertension type: essential hypertension Qualified Code(s): I10 - Essential (primary) hypertension (3) DVT prophylaxis Current Visit: No Status: Chronic (4) Leukocytosis Current Visit: No Status: Acute Qualifiers: Leukocytosis type: unspecified Qualified Code(s): D72.829 - Elevated white blood cell count, unspecified (5) Arthritis of right hip Current Visit: No Status: Chronic (6) Status post total hip replacement, right Current Visit: No Status: Acute (7) Neuropathy Current Visit: No Status: Chronic (8) GERD (gastroesophageal reflux disease) Current Visit: No Status: Chronic Qualifiers: Esophagitis presence: esophagitis presence not specified Qualified Code(s) : K21.9 - Gastro-esophageal reflux disease without esophagitis (9) Mitral valve regurgitation Current Visit: No Status: Chronic Qualifiers: Cardiac valve disease etiology: etiology unspecified Qualified Code(s): I34.0 - Nonrheumatic mitral (valve) insufficiency Subjective Interval history: Patient was seen this morning doing well without complaints. Afebrile vital signs stable. Operative extremity: Neurovascularly intact Dressing clean dry and intact Calves nontender Assessment and plan: Continue with postoperative care Hematocrit 36 Objective Vital signs: Vital Signs Temp Pulse Resp BP Pulse Ox 07/06/17 03:41 98.0 F 90 16 108/66 93 07/05/17 23:30 97.8 F 80 16 110/70 94 07/05/17 19:24 97.9 F 87 16 144/79 94 07/05/17 17:25 97.5 F L 83 18 103/59 93 07/05/17 15:52 97.7 F 75 16 123/72 93 07/05/17 15:15 97.6 F 82 17 134/77 95 07/05/17 14:59 77 18 128/88 96 07/05/17 14:49 72 16 124/69 95 07/05/17 14:39 97.7 F 68 16 108/62 96 07/05/17 14:29 73 16 106/59 95 07/05/17 14:19 76 16 98/62 98 07/05/17 14:09 98.2 F 73 12 101/75 93 07/05/17 12:08 96 174/76 95 07/05/17 10:37 98.3 F 100 18 181/103 95 Intake and Output 07/05/17 07/05/17 07/06/17 15:59 23:59 07:59 Intake Total 100 / 100 Output Total 200 / 200 700 / 700 Balance -200 / -200 -700 / -700 100 / 100 Intake: IV Fluids 100 / 100 Ancef Premix 2,000 MG/100 ML 2, 100 / 100 000 mg In 100 ml @ 200 mls/hr IVPB Q8H CHRISTIANO Rx#:[id number] Output: Emesis 700 / 700 Estimated Blood Loss 200 / 200 Other: # Voids 1 Weight 103.873 kg - Labs CBC & BMP: 07/06/17 01:34 07/06/17 01:34 Labs: Abnormal lab results Hgb 11.7 g/dL (12.9-16.9) L 07/06/17 01:34 Hct 36.4 % (37.5-50.1) L 07/06/17 01:34 Glucose 176 mg/dL (70-105) H 07/06/17 01:34 - VTE Documentation of Mechanical Device: Venous foot pump, device Consult Discharge Plan - Plan Referrals: Quinn Nova DO [Primary Care Provider] -
[2017-07-06] MEDS: Multivit/Ca/Min/Fe/FA 1 TAB TABLET PO SCH (08:13)
[2017-07-06] MEDS: Lisinopril 20 MG TABLET PO SCH ×2 (08:13→20:09)
[2017-07-06] MEDS: Gabapentin 300 MG CAPSULE PO SCH ×3 (08:13→20:09)
[2017-07-06] MEDS: Cyanocobalamin (B-12) 1,000 MCG TABLET PO SCH (08:14)
[2017-07-06] MEDS ORDERED: [UNRECOGNIZED DRUG - OTHER] PO SCH (09:00)
[2017-07-06] MEDS: Ascorbic Acid 500 MG TABLET PO SCH ×2 (10:25→17:46)
--- NOTE | 2017-07-06 12:07 | Event Note ---
Date of Encounter: 07/06/17 Time of Encounter: 12:06 PCR - POD#1 - Right THR Patient seen at bedside. Labs reviewed. Pain control: yes Participating in PT. All questions and concerns addressed. Educated on use of incentive spirometer. Encouraged ambulation and proper hydration. Patient educated on post-operative restrictions and post-operative care. Addressed: ECF - continuity placed Discharge plan: Increased Gabapentin to 800mg TID frmo 600mg TID
--- NOTE | 2017-07-06 16:54 | Physician Discharge Referral ---
ExtendedCare Referral Info Transfer To: [facility] Provider in Charge: Provider in Charge after Transfer: PCP Institutional Level of Care: Skilled - Diagnosis (1) Arthritis of right hip Priority: Primary Status: Chronic (2) Status post total hip replacement, right Priority: Primary Status: Acute (3) Neuropathy Priority: Secondary Status: Chronic (4) GERD (gastroesophageal reflux disease) Priority: Secondary Status: Chronic (5) Obesity Priority: Secondary Status: Chronic (6) Mitral valve regurgitation Priority: Secondary Status: Chronic (7) Hypertension Priority: Secondary Status: Chronic Expected Duration of Placement: < 30 days Prognosis: Good Aware of Diagnosis: Patient Aware of Prognosis: Patient - Transfer Medications Home Medications: Benazepril HCl [Lotensin] 20 mg PO BID 07/29/16 [History] Esomeprazole Magnesium [Nexium 24Hr] 22.3 mg PO BID 07/29/16 [History] Gabapentin [Neurontin] 600 mg PO TID 07/29/16 [History] Levothyroxine [Synthroid] 50 mcg PO 0630 07/29/16 [History] Aspirin Enteric Coated [Aspirin EC] 325 mg PO BID #20 tablet. 07/04/17 [Rx] OxyCODONE Immed Rel [Roxicodone 5 MG] 5 mg PO Q6HR PRN 7 Days #28 tablet [Rx] Aspirin 81 mg PO Q48H 07/05/17 [History] Cyanocobalamin (Vitamin B-12) [Vitamin B12] 1,000 mcg PO DAILY 07/05/17 [History ] [id number]/Ferrous Fumarate/FA [Gs Vitamins Tablet] 1 tab PO DAILY [History] Allergies/Adverse Reactions: 3 Allergy/AdvReac Type Severity Reaction Status Date / Time pregabalin [From Lyrica] AdvReac See Verified 07/05/17 10:53 Comments - Respiratory Orders None Smoking Cessation: Smoking cessation has been advised. For more information, call the [place] Tobacco Quit Line at 8-197-FHQJ-NOW. - Ancillary Orders May use pressure relief devices daily prn, May go on SUKUMAR w/family/respon democrat w /meds at nurse discretion PRN - Mobility Orders Ambulate - Rehabiliation Orders Rehab Orders: ROM Exercises, Evaluation for Physical Therapy, Evaluation for Occupational Therapy Other: HIP Continuity Opsite dressing, leave intact until first post-operative visit. If dressing becomes >50% saturated, contact office, remove dressing and place appropriate dressing in its place. Do not allow for dressing to get wet. Zipline in place, plan to remove at post-operative day #14-16. Total Joint Precautions x 6 weeks Apply cold therapy wrap 3-6x/day for 20 minutes at a time. Encourage ambulation throughout the day Use Incentive spirometer 10x/hour. Elevate affected extremity above heart as tolerated. Brace: Wear hip abductor brace at night x 6 weeks.~ CERTIFICATION: I certify that the transfer of the above named patient to an Extended Care Facility is necessary for the continuing treatment of the diagnosis listed. The above information is true and accurate reflection of patient's current condition. Confidential - Redisclosure prohibited without a patient's written consent.
[2017-07-07] MEDS: *HR* OxyCODONE/APAP 5/325 TABLET PO PRN ×2 (01:41→06:38)
[2017-07-07 01:50] LABS: Hematocrit 31.2 % (37.5-50.1)
[2017-07-07 01:54] LABS: Hemoglobin 9.7 g/dL (12.9-16.9)
[2017-07-07 02:10] LABS: Calcium 8.2 mg/dL (8.6-10.3); Potassium 4.4 mEq/L (3.5-5.1)
[2017-07-07] MEDS: *HR* Enoxaparin 30 MG/0.3 ML SYRINGE SQ SCH (05:12)
--- NOTE | 2017-07-07 06:40 | Orthopedics Progress Note ---
Date of Encounter: 07/07/17 Time of Encounter: 06:39 - Assessment and Plan (1) Obesity (BMI 30.0-34.9) Current Visit: Yes Status: Chronic (2) Hypertension Current Visit: No Status: Chronic Qualifiers: Hypertension type: essential hypertension Qualified Code(s): I10 - Essential (primary) hypertension (3) DVT prophylaxis Current Visit: No Status: Chronic (4) Leukocytosis Current Visit: No Status: Acute Qualifiers: Leukocytosis type: unspecified Qualified Code(s): D72.829 - Elevated white blood cell count, unspecified (5) Arthritis of right hip Current Visit: No Status: Chronic (6) Status post total hip replacement, right Current Visit: No Status: Acute (7) Neuropathy Current Visit: No Status: Chronic (8) GERD (gastroesophageal reflux disease) Current Visit: No Status: Chronic Qualifiers: Esophagitis presence: esophagitis presence not specified Qualified Code(s) : K21.9 - Gastro-esophageal reflux disease without esophagitis (9) Mitral valve regurgitation Current Visit: No Status: Chronic Qualifiers: Cardiac valve disease etiology: etiology unspecified Qualified Code(s): I34.0 - Nonrheumatic mitral (valve) insufficiency Subjective Interval history: Patient was seen this morning doing well without complaints. Afebrile vital signs stable. Operative extremity: Neurovascularly intact Dressing clean dry and intact Calves nontender Assessment and plan: Continue with postoperative care Hematocrit 31 Objective Vital signs: Vital Signs Temp Pulse Resp BP Pulse Ox 07/07/17 03:42 98.4 F 84 16 112/67 94 07/06/17 23:55 97.5 F L 88 16 115/67 94 07/06/17 18:49 97.6 F 90 16 112/54 94 07/06/17 15:39 98.4 F 86 16 124/67 93 07/06/17 11:06 98.2 F 87 16 118/72 93 Intake and Output 07/06/17 07/06/17 07/07/17 15:59 23:59 07:59 Intake Total 120 / 120 240 / 240 Output Total 150 / 150 500 / 500 Balance 120 / 120 90 / 90 -500 / -500 Intake: Oral 120 / 120 240 / 240 Output: Urine 150 / 150 500 / 500 Other: Meal Lunch Dinner Percent of Meal Consumed 90% 90% # Voids 1 - Labs CBC & BMP: 07/07/17 00:52 07/07/17 00:52 Labs: Abnormal lab results Hgb 9.7 g/dL (12.9-16.9) L D 07/07/17 00:52 Hct 31.2 % (37.5-50.1) L 07/07/17 00:52 Sodium 135 mEq/L (136-145) L 07/07/17 00:52 BUN 31 mg/dL (8-23) H 07/07/17 00:52 Creatinine 1.51 mg/dL (0.70-1.30) H 07/07/17 00:52 Est GFR ( Amer) 53 (> 60) L 07/07/17 00:52 Est GFR (Non-Af Amer) 44 (> 60) L 07/07/17 00:52 Glucose 109 mg/dL (70-105) H 07/07/17 00:52 Calcium 8.2 mg/dL (8.6-10.3) L 07/07/17 00:52 - VTE Documentation of Mechanical Device: Venous foot pump, device Consult Discharge Plan - Plan Referrals: Quinn Nova DO [Primary Care Provider] -
[2017-07-07 07:24] VITALS: BP 118/73
[2017-07-07] MEDS: Multivit/Ca/Min/Fe/FA 1 TAB TABLET PO SCH (08:08)
[2017-07-07] MEDS: Cyanocobalamin (B-12) 1,000 MCG TABLET PO SCH (08:08)
[2017-07-07] MEDS: Lisinopril 20 MG TABLET PO SCH (08:08)
[2017-07-07] MEDS: Ascorbic Acid 500 MG TABLET PO SCH (08:09)
[2017-07-07] MEDS: Gabapentin 300 MG CAPSULE PO SCH (08:09)
== END 2017-07-07 11:54 | DRG 470 ==
LOC: SAMDAY 10:18 → 3NENU 15:20
PROVIDERS: ADMIT Orthopaedic Surgery; ATTEND Orthopaedic Surgery